=== PATIENT | female | born 2000 | race African-American/Black ===

== ENCOUNTER 2024-02-12 13:56 | Inpatient (IN) | payer OTHER ==
[2024-02-12 15:11] LABS: BASO % 0.5 % (0-2.0); EOS % 1.2 % (0-4.5); HEMATOCRIT 38.7 % (32.4-45.2); HEMOGLOBIN 12.9 GM/dL (10.7-15.3); LYMPH % 12.7 % (8-40); MCH 29.3 pg (25.7-33.7); MCHC 33.4 g/dl (32.0-36.0); MEAN CELL VOLUME 87.6 fl (80-96); MEAN PLT VOLUME 9.2 fl (7.5-11.1); MONO % 6.4 % (3.8-10.2); NEUT % 79.2 % (42.8-82.8); PLATELET COUNT 162 10^3/uL (134-434); RBC 4.42 M/mm3 (3.60-5.2); RDW 14.4 % (11.6-15.6); WHITE BLOOD COUNT 9.7 K/mm3 (4.0-10.0)
[2024-02-12 15:18] LABS: INR 0.91 (0.83-1.09); PROTHROMBIN TIME (PATIENT) 10.3 SEC (9.7-13.0)
[2024-02-12 15:20] LABS: ACTIVATED PTT 26.4 SECONDS (25.2-36.5)
[2024-02-12 15:36] LABS: POTASSIUM 4.2 mmol/L (3.5-5.1)
[2024-02-12 15:38] LABS: BLOOD UREA NITROGEN 8.3 mg/dL (7-18); CALCIUM 9.8 mg/dL (8.5-10.1)
[2024-02-12 15:42] LABS: CREATININE 0.7 mg/dL (0.55-1.3)
[2024-02-12 15:54] VITALS: BMI 24.4
[2024-02-12] MEDS ORDERED: SODIUM CHLORIDE 100 ML IVPB ONE ×3 (16:15→23:56)
[2024-02-12] MEDS ORDERED: AMPICILLIN SODIUM 2 GM VIAL ONE (16:15)
[2024-02-12] MEDS: AMPICILLIN - 2 GM in SODIUM CHLORIDE 100 ML IVPB ONE (16:20)
[2024-02-12 16:30] LABS: HIV INTERPRETATION NEGATIVE (NEGATIVE)
[2024-02-12] MEDS ORDERED: AZITHROMYCIN IVPB 500 MG/250 ML BAG IVPB ONE (19:52)
[2024-02-12] MEDS ORDERED: FENTANYL CITRATE/PF 50 MCG/ML VIAL ONE (19:53)
[2024-02-12] MEDS ORDERED: DEXAMETHASONE SOD PHOSPHATE 4 MG/1 ML VIAL ONE (19:53)
[2024-02-12] MEDS ORDERED: morphine SULFATE/PF 1 MG/2 ML (2cc Syringe - QUVA) ONE (19:53)
[2024-02-12] MEDS ORDERED: OXYTOCIN 10 UNITS/ML VIAL ONE (19:53)
[2024-02-12] MEDS ORDERED: ONDANSETRON 4 MG/2 ML VIAL ONE (19:53)
[2024-02-12] MEDS ORDERED: ceFAZolin SODIUM 1 GM VIAL ONE (19:54)
[2024-02-12] MEDS ORDERED: KETOROLAC TROMETHAMINE 30 MG/1 ML VIAL ONE (19:54)
[2024-02-12] MEDS ORDERED: METOCLOPRAMIDE HCL INJECTION 10 MG/2 ML VIAL ONE (19:54)
[2024-02-12] MEDS ORDERED: PHENYLEPHRINE HCL 10 MG/1 ML SINGLE DOSE VIAL ONE (19:56)
[2024-02-12] MEDS: CITRIC ACID/SODIUM CITRATE 30 ML UNIT-DOSE CUP PO ONE (20:00)
[2024-02-12] MEDS: ELECTROLYTE-148 SOLN 1,000 ML IV SCH (20:05)
[2024-02-12] MEDS: AMPICILLIN - 1 GM in SODIUM CHLORIDE 100 ML IVPB SCH (20:15)
[2024-02-12] MEDS ORDERED: AMPICILLIN SODIUM 1 GM VIAL ONE ×2 (20:30→23:56)
[2024-02-12] MEDS: DINOPROSTONE 10 MG VAGINAL SUPPOSITORY VG ONE (20:44)
[2024-02-13] MEDS ORDERED: PROMETHAZINE HCL 25 MG/1 ML VIAL ONE ×2 (00:59→07:06)
[2024-02-13] MEDS ORDERED: BUTORPHANOL TARTRATE 2 MG/ML VIAL ONE ×2 (00:59→07:06)
[2024-02-13] MEDS: BUTORPHANOL TARTRATE 2 MG/ML VIAL IVPB ONE ×2 (01:08→07:15)
[2024-02-13] MEDS: PROMETHAZINE HCL 25 MG/1 ML VIAL IVPB ONE ×2 (01:08→07:15)
[2024-02-13] MEDS ORDERED: AMPICILLIN SODIUM 1 GM VIAL ONE ×3 (04:56→12:30)
[2024-02-13] MEDS ORDERED: SODIUM CHLORIDE 100 ML IVPB ONE (04:56)
[2024-02-13] MEDS ORDERED: OXYTOCIN 30 UNITS in 0.9% NS 30 UNIT/500 ML INFUS.BAG IVPB ONE (06:13)
[2024-02-13] MEDS: OXYTOCIN 30 UNITS in 0.9% NS 30 UNIT/500 ML INFUS.BAG IVPB SCH (07:00)
[2024-02-13] MEDS ORDERED: FENTANYL/BUPIVACAINE/NS/PF - PCEA - 50 ML DISP.SYRIN EP ONE (08:38)
[2024-02-13] MEDS ORDERED: LIDO 2%/EPI 1:200000 PRESRVFRE (20 ML SDVIAL) ONE (08:54)
[2024-02-13] MEDS ORDERED: BUPIVACAINE HCL/PF 0.25% (2.5MG/ML) 10 ML VIAL ONE (08:54)
[2024-02-13] MEDS: FENTANYL/BUPIVACAINE/NS/PF - PCEA - 50 ML DISP.SYRIN EP SCH ×2 (09:10→19:28)
[2024-02-13] MEDS ORDERED: NALOXONE HCL 0.4 MG/ML VIAL IVPUSH PRN (09:27)
[2024-02-13] MEDS ORDERED: OXYTOCIN 20 UNITS in 0.9% NS 20 UNIT/1,000 ML INFUS.BAG IV ONE (13:19)
[2024-02-13] MEDS ORDERED: LIDOCAINE HCL 1% PRESERVATIVE FREE - 30ML VIAL ONE (13:53)
[2024-02-13] MEDS: OXYTOCIN 20 UNITS in 0.9% NS 20 UNIT/1,000 ML INFUS.BAG IV SCH (14:08)
[2024-02-13 14:25] LABS: POC NITRAZINE POS
[2024-02-13] MEDS ORDERED: METHYLERGONOVINE MALEATE 0.2 MG/1 ML AMP IM PRN (15:34)
[2024-02-13] MEDS ORDERED: BISACODYL 10 MG SUPP.RECT RC PRN (15:34)
[2024-02-13] MEDS ORDERED: IBUPROFEN 600 MG TABLET (FP) PO PRN (15:34)
[2024-02-13] MEDS ORDERED: BENZOCAINE 20% 57 GM BOTTLE TP PRN (15:34)
[2024-02-13] MEDS ORDERED: BENZOCAINE 28 GM HEMORRHOIDAL OINTMENT TP PRN (15:34)
[2024-02-13] MEDS ORDERED: WITCH HAZEL 50% (TUCKS) 40 PAD/JAR PAD TP PRN (15:34)
[2024-02-13] MEDS ORDERED: oxyCODONE HCL 5 MG TABLET ONE (15:39)
[2024-02-13] MEDS: oxyCODONE HCL 5 MG TABLET PO PRN (15:40)
[2024-02-13 17:11] VITALS: RESP 18
[2024-02-13] MEDS: ACETAMINOPHEN 325 MG TABLET (FP) PO PRN (19:16)
[2024-02-13] MEDS: ELECTROLYTE-148 SOLN 500 ML IV ONE (19:28)
[2024-02-14 07:40] LABS: BASO % 0.3 % (0-2.0); HEMATOCRIT 30.7 % (32.4-45.2); HEMOGLOBIN 10.2 GM/dL (10.7-15.3); LYMPH % 14.6 % (8-40); MCH 29.5 pg (25.7-33.7); MCHC 33.2 g/dl (32.0-36.0); MEAN PLT VOLUME 9.7 fl (7.5-11.1); MONO % 6.2 % (3.8-10.2); NEUT % 77.9 % (42.8-82.8); PLATELET COUNT 138 10^3/uL (134-434); RBC 3.45 M/mm3 (3.60-5.2); RDW 14.1 % (11.6-15.6); WHITE BLOOD COUNT 11.9 K/mm3 (4.0-10.0)
[2024-02-14] MEDS: FERROUS SO4 325 MG TABLET (FP) PO SCH (09:02)
[2024-02-14] MEDS: PRENATAL VITAMINS W/ FOLIC ACID TABLET (FP) PO SCH (09:02)
[2024-02-14] MEDS ORDERED: SENNOSIDES/DOCUSATE COMBO (SENNA PLUS) TABLET (UD) PO PRN (22:00)
[2024-02-15 09:43] VITALS: BP 126/73; PULSE 73; TEMP 98.5
== END 2024-02-15 12:50 | disposition home or self-care (01) | DRG 807 ==
LOC: JLDR 13:56 → J3W 02-13 17:00
PROVIDERS: ADMIT Obstetrics & Gynecology; ATTEND Obstetrics & Gynecology
PROC: 3E0P7VZ Introduction of Hormone into Female Reproductive, Via Natural or Artificial Opening (ICD-10-PCS; 2024-02-12)
PROC: 10E0XZZ Delivery of Products of Conception, External Approach (ICD-10-PCS; principal; 2024-02-13)
PROC: 0W8NXZZ Division of Female Perineum, External Approach (ICD-10-PCS; 2024-02-13)
DX: O80 Encounter for full-term uncomplicated delivery (principal); Z37.0 Single live birth; Z3A.37 37 weeks gestation of pregnancy
CPT/HCPCS: 36415; 59409; 80048; 83986-QW; 85025; 85610; 85730; 86780; 86803; 86850; 86900; 86901; 87389